=== PATIENT | female | born 1985 | race American Indian/Alaskan Native ===

== ENCOUNTER 2017-05-25 05:19 | Inpatient (IN) | payer BC, MEDICAID ==
[2017-05-25] MEDS: LACTATED RINGERS 1,000 ML IV SCH ×2 (07:30→08:04)
[2017-05-25] MEDS ORDERED: LACTATED RINGERS 1,000 ML ONE (07:30)
[2017-05-25 07:57] LABS: Hemoglobin 9.7 gm/dl (10.1-14.3); Mean Corpuscular HGB Conc 33 % (30-34); Mean Corpuscular Volume 77 fl (79-97); Platelet Count 182 K/mm3 (140-440); Red Blood Count 3.76 M/mm3 (3.65-5.03); Red Cell Distribution Width 16.9 % (13.2-15.2); White Blood Count 5.1 K/mm3 (4.5-11.0)
[2017-05-25 07:59] LABS: Mean Corpuscular Hemoglobin 26 pg (28-32)
--- NOTE | 2017-05-25 08:13 | History and Physical Report ---
<EDWIN LUDWIG - Last Filed: 05/25/17 08:09> History of Present Illness Date of examination: 05/25/17 Date of admission: 05/25/17 06:45 History of present illness: 31 yo LMP EDC 05/26/17 @ 39.6 weeks gestation presented to triage at 2 cm with bloody show and deceleration with recovery. Decision made to admit. Patient is a transfer into care at 37 weeks from [facility], [employer]. She is HSV2 positive. course complicated by anemia with iron. She is GBS negative. Past History Past Medical History: neurologic (chronic headaches), other (anemia) Past Surgical History: no surgical history [employer] SYSTEMS ENGINEER History: chlamydia, herpes, trichomonas Family/Genetic History: hypertension Social history: no significant social history, single, lives with family - Obstetrical History Expected Date of Delivery: 05/26/17 Actual Gestation: 39 Week(s) 6 Day(s) : 3 Para: 2 Hx # Term Pregnancies: 2 (2006, 40 weeks 7-9oz & 2013, 40 weeks, 7-14) Number of Pregnancies: 0 Number of Living Children: 2 Medications and Allergies Allergies Allergy/AdvReac Type Severity Reaction Status Date / Time No Known Allergies Allergy Unverified 04/06/13 09:38 Home Medications Medication Instructions Recorded Confirmed Last Taken Type Vits96/Iron Fum/Folic 1 tab PO DAILY 12/03/13 05/25/17 05/22/17 09:00 History [ Tablet] Valacyclovir HCl [Valtrex] 500 mg PO DAILY 05/25/17 05/25/17 05/24/17 22:30 History Active Meds: Active Medications Lactated Ringer's (Lactated Ringers) 1,000 mls @ 125 mls/hr IV DIRECT CLYDE Last Admin: 05/25/17 08:04 Dose: 125 mls/hr Review of Systems All systems: negative - Vital Signs Vital signs: Vital Signs Pulse BP Pulse Ox 91 H 122/77 98 05/25/17 05:43 05/25/17 05:43 05/25/17 05:43 Temp Pulse Resp BP Pulse Ox 97.9 F 98 H 18 121/77 100 05/25/17 05:59 05/25/17 08:08 05/25/17 05:59 05/25/17 07:55 05/25/17 08:08 Results Result Diagrams: 05/25/17 07:00 Abnormal lab results 05/25/17 Range/Units 07:00 Hgb 9.7 L (10.1-14.3) gm/dl Hct 29.0 L (30.3-42.9) % MCV 77 L (79-97) fl MCH 26 L (28-32) pg RDW 16.9 H (13.2-15.2) % All other labs normal. Assessment and Plan A: IUP at 39.6 week Anemia P: <BONIFACIO STACY - Last Filed: 05/25/17 12:03> History of Present Illness Date of admission: 05/25/17 06:45 Medications and Allergies Active Meds: Active Medications Butorphanol Tartrate (Stadol) 2 mg IV Q2H PRN PRN Reason: Pain , Severe (7-10) Fentanyl (Sublimaze) 100 mcg IV Q2H PRN PRN Reason: Labor Pain Lactated Ringer's (Lactated Ringers) 1,000 mls @ 125 mls/hr IV DIRECT CLYDE Last Admin: 05/25/17 08:04 Dose: 125 mls/hr Lactated Ringer's (Lactated Ringers) 1,000 mls @ 125 mls/hr IV DIRECT CLYDE Last Admin: 05/25/17 09:11 Dose: 125 mls/hr Oxytocin/Sodium Chloride (Pitocin/Ns 20 Unit/1000ml Drip) 20 units in 1,000 mls @ 125 mls/hr IV DIRECT CLYDE Oxytocin/Sodium Chloride (Pitocin/Ns 30 Unit/500ml) 30 units in 500 mls @ 1 mls /hr IV TITR CLYDE; 1 MILLIUNITS/MIN PRN Reason: Protocol Last Admin: 05/25/17 10:16 Dose: 4 milliunits/min, 4 mls/hr Fentanyl/Bupivacaine/Sodium Chlor (Fentanyl-Bupiv 2 Mcg/Ml-0.125%) 200 mcg in 100 mls @ 12 mls/hr EPIDURAL TITR CLYDE PRN Reason: Protocol Last Admin: 05/25/17 09:17 Dose: 12 mls/hr Mineral Oil (Mineral Oil) 30 ml PO QHS PRN PRN Reason: Constipation - Vital Signs Vital signs: Vital Signs Pulse BP Pulse Ox 91 H 122/77 98 05/25/17 05:43 05/25/17 05:43 05/25/17 05:43 Temp Pulse Resp BP Pulse Ox 97.9 F 107 H 18 105/65 100 05/25/17 05:59 05/25/17 11:33 05/25/17 05:59 05/25/17 11:29 05/25/17 11:33 Results Result Diagrams: 05/25/17 07:00 Abnormal lab results 05/25/17 Range/Units 07:00 Hgb 9.7 L (10.1-14.3) gm/dl Hct 29.0 L (30.3-42.9) % MCV 77 L (79-97) fl MCH 26 L (28-32) pg RDW 16.9 H (13.2-15.2) % All other labs normal. Assessment and Plan Routine intrapartum care. Anticipate vaginal delivery.
[2017-05-25] MEDS ORDERED: ePHEDrine SULFATE ONE (08:17)
[2017-05-25] MEDS ORDERED: XYLOCAINE 2% INFILTRATI ONE (08:17)
[2017-05-25] MEDS ORDERED: BRETHINE SUB-Q PRN (08:17)
[2017-05-25] MEDS ORDERED: ePHEDrine SULFATE IV PRN ×2 (08:17→09:00)
[2017-05-25] MEDS ORDERED: STADOL IV PRN (08:17)
[2017-05-25] MEDS ORDERED: BRETHINE IVP PRN (08:17)
[2017-05-25] MEDS ORDERED: SUBLIMAZE IV PRN (08:17)
[2017-05-25] MEDS ORDERED: MINERAL OIL PO PRN (08:17)
--- NOTE | 2017-05-25 08:51 | Anesthesia Consultation ---
Anesthesia Consult and Med Hx Date of service: 05/25/17 - Airway Anesthetic Teeth Evaluation: Good ROM Head & Neck: Adequate Mental/Hyoid Distance: Adequate Mallampati Class: Class II Intubation Access Assessment: Probably Good - Pre-Operative Health Status ASA Pre-Surgery Classification: ASA2 Proposed Anesthetic Plan: Epidural - Pulmonary Hx Asthma: No COPD: No Hx Pneumonia: No - Cardiovascular System Hx Hypertension: No - Central Nervous System Hx Seizures: No Hx Psychiatric Problems: No - Endocrine Hx Renal Disease: No Hx End Stage Renal Disease: No Hx Hypothyroidism: No Hx Hyperthyroidism: No - Hematic Hx Anemia: Yes Hx Sickle Cell Disease: No - Other Systems Hx Alcohol Use: No
[2017-05-25] MEDS ORDERED: PITOCin/NS 20 UNIT/1000ML DRIP 20 UNITS/1,000 ML BAG IV SCH ×2 (09:00→14:13)
[2017-05-25] MEDS ORDERED: NARCAN 2 MG/2 ML IV PRN (09:00)
[2017-05-25] MEDS ORDERED: LACTATED RINGERS 1,000 ML IV SCH (09:00)
[2017-05-25] MEDS ORDERED: PITOCin/NS 30 UNIT/500ML 30 UNITS/500 ML BAG IV SCH (09:00)
[2017-05-25] MEDS ORDERED: fentaNYL-BUPIV 2 MCG/ML-0.125% 200 MCG/100 ML BAG EPIDURAL SCH (09:00)
--- NOTE | 2017-05-25 12:08 | Procedure Note ---
OB Delivery Note - Delivery Date of Delivery: 05/25/17 Surgeon: BONIFACIO STACY Estimated blood loss: other (500 mL) - Vaginal Delivery presentation: vertex Delivery position: OA Intrapartum events: PROM->1hr before delivery, bleeding site-undetermine, mult.variable deceleratio Delivery induction: none Delivery augmentation: rupture of membranes, pitocin Delivery monitor: external FHT, external uterine Route of delivery: Delivery placenta: spontaneous Delivery cord: 3 umbilical vessels Episiotomy: none Delivery laceration: other (Bilateral periturethral- hemostatic. Perineal abrasion- hemostatic ) Anesthesia: epidural Delivery comments: Pt progressed to complete/complete/+1 and pushed to deliver a viable male over intact perineum under epidural anesthesia via . Head delivered in ROLANDO position, quickly followed by shoulder and body. placed on maternal abdomen and bulb suctioned. Cord clamped and cut and handed to RN in attendance. Cord blood collected. Placenta delivered spontaneously (3VC, intact, accessory lobe). Vagina and perineum explored. Bilateral periurethral lacerations noted to be hemostatic. Perineal abrasions noted to be hemostatics. Pt had light bleeding throughout her labor course, so total EBL 500 mL (though only 300 mL during delivery). - Infant A at 1 minute: 9 at 5 minutes: 9 Gender: Male (3622g (8lb 0oz) @ 1137 am)
[2017-05-25] MEDS ORDERED: MILK OF MAGNESIA PO PRN (14:13)
[2017-05-25] MEDS ORDERED: TYLENOL PO PRN (14:13)
[2017-05-25] MEDS ORDERED: ZOFRAN IV PRN (14:13)
[2017-05-25] MEDS ORDERED: PHENERGAN PR PRN (14:13)
[2017-05-25] MEDS ORDERED: DERMOPLAST TP PRN (14:13)
[2017-05-25] MEDS ORDERED: LANSINOH TP PRN (14:13)
[2017-05-25] MEDS ORDERED: PHENERGAN PO PRN (14:13)
[2017-05-25] MEDS ORDERED: SODIUM CHLORIDE FLUSH SYRINGE 10 ML IV NR (14:13)
[2017-05-25] MEDS ORDERED: BENADRYL PO PRN (14:13)
[2017-05-25] MEDS ORDERED: DULCOLAX PR PRN (14:13)
[2017-05-25] MEDS ORDERED: NORCO 5/325 PO PRN (14:13)
[2017-05-25] MEDS ORDERED: TUCKS PAD TP PRN (14:13)
[2017-05-25] MEDS: MOTRIN PO SCH ×2 (14:54→23:01)
[2017-05-25] MEDS: FEOSOL PO SCH (23:01)
[2017-05-25] MEDS: COLACE PO SCH (23:01)
[2017-05-26 01:31] LABS: Hematocrit 25.8 % (30.3-42.9); Hemoglobin 8.6 gm/dl (10.1-14.3)
[2017-05-26] MEDS: MOTRIN PO SCH ×4 (05:19→20:13)
--- NOTE | 2017-05-26 08:13 | Progress Note ---
Assessment and Plan - Patient Problems (1) Active labor at term Current Visit: Yes Status: Acute Plan to address problem: discharge home Subjective - Subjective Date of service: 05/26/17 Interval history: Patient doing well. She desires to go home. Pain controlled. Decreased lochia Patient reports: appetite normal, voiding normally, pain well controlled [place]: doing well Objective - Vital Signs Latest vital signs: Vital Signs Temp Pulse Resp BP BP Pulse Ox 05/26/17 01:36 99.1 F 75 16 103/70 05/25/17 20:26 98.8 F 94 H 18 110/51 05/25/17 16:30 98.5 F 76 18 98/63 05/25/17 13:40 98.2 F 87 18 112/78 100 05/25/17 13:20 97.4 F L 05/25/17 13:14 88 124/69 05/25/17 12:59 102 H 145/60 05/25/17 12:44 85 121/70 05/25/17 12:29 96 H 112/76 05/25/17 12:14 90 119/69 05/25/17 11:59 106 H 113/71 05/25/17 11:55 98.2 F 05/25/17 11:45 16 05/25/17 11:44 96 H 111/65 05/25/17 11:38 95 H 100 05/25/17 11:33 107 H 100 05/25/17 11:29 114 H 105/65 05/25/17 11:28 94 H 100 05/25/17 11:23 85 100 05/25/17 11:18 104 H 100 05/25/17 11:15 93 H 99/58 05/25/17 11:13 89 100 05/25/17 11:08 85 100 05/25/17 11:03 96 H 100 05/25/17 10:59 116 H 74/42 05/25/17 10:58 98 H 100 05/25/17 10:53 95 H 100 05/25/17 10:48 95 H 100 05/25/17 10:45 104 H 87/51 05/25/17 10:43 98 H 100 05/25/17 10:38 87 100 05/25/17 10:33 97 H 100 05/25/17 10:29 89 93/50 05/25/17 10:28 91 H 100 05/25/17 10:23 101 H 100 05/25/17 10:18 91 H 100 05/25/17 10:15 94 H 90/52 05/25/17 10:13 114 H 100 05/25/17 10:08 106 H 100 05/25/17 10:03 96 H 100 05/25/17 10:00 98 H 96/58 05/25/17 09:58 86 99 05/25/17 09:53 91 H 100 05/25/17 09:50 97 H 0 L 05/25/17 09:48 82 100 05/25/17 09:44 89 104/61 05/25/17 09:43 85 100 05/25/17 09:38 92 H 99 05/25/17 09:33 85 100 05/25/17 09:29 86 111/67 05/25/17 09:28 115 H 99 05/25/17 09:23 89 99 05/25/17 09:18 84 99 05/25/17 09:13 90 115/61 100 05/25/17 09:11 94 H 98/65 05/25/17 09:09 100 H 100/56 05/25/17 09:08 93 H 99 05/25/17 09:07 98 H 98/55 05/25/17 09:05 93 H 100/59 05/25/17 09:03 90 102/61 100 05/25/17 09:01 100 H 105/60 05/25/17 08:59 88 104/62 05/25/17 08:58 85 100 05/25/17 08:57 110 H 105/59 05/25/17 08:55 89 107/61 05/25/17 08:53 97 H 114/64 100 05/25/17 08:51 137 H 104/61 05/25/17 08:49 105 H 113/62 05/25/17 08:48 96 H 100 05/25/17 08:47 104 H 108/62 05/25/17 08:45 106 H 111/68 05/25/17 08:43 90 115/70 100 05/25/17 08:41 96 H 108/67 05/25/17 08:39 96 H 113/69 05/25/17 08:38 87 72 L 05/25/17 08:37 105 H 113/69 05/25/17 08:35 99 H 117/66 05/25/17 08:33 110 H 121/72 100 05/25/17 08:28 99 H 100 05/25/17 08:27 109 H 130/70 05/25/17 08:23 95 H 100 05/25/17 08:18 115 H 98 Intake and Output 05/25/17 05/26/17 05/26/17 22:59 06:59 14:59 Intake Total 600 180 Balance 600 180 Intake: Oral 240 Intake, Free Water 360 180 Other: Total, Intake Amount 240 # Voids Indwelling Catheter 1 Void 1 - Exam Abdomen: Present: normal appearance Uterus: Present: normal, firm - Labs Labs: Abnormal lab results 05/26/17 Range/Units 00:57 Hgb 8.6 L (10.1-14.3) gm/dl Hct 25.8 L (30.3-42.9) %
--- NOTE | 2017-05-26 08:16 | Discharge Summary ---
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 During her observation in triage, fetus had a bradycardic episode. Patient admitted for augmention. Had a . uncomplicated Condition at discharge: Good Disposition: DC-01 TO HOME OR SELFCARE - Discharge Diagnoses (1) Active labor at term Status: Acute Plan - Discharge Medications Prescriptions: HYDROcodone/APAP 5-325 [[place] 5/325] 1 each PO Q6HR PRN #30 tablet PRN Reason: Pain Ibuprofen [Motrin] 800 mg PO Q8HR PRN #60 tablet PRN Reason: Pain - Provider Discharge Summary Activity: no sex for 6 weeks, no heavy lifting 4 weeks, no strenuous exercise Diet: routine Instructions: routine Additional instructions: [] Smoking cessation referral if applicable(refer to patient education folder for contact #) [] Refer to [facility]'s [facility] [address] Booklet Call your doctor immediately for: * Fever > 100.5 * Heavy vaginal bleeding ( >1 pad per hour) * Severe persistent headache * Shortness of breath * Reddened, hot, painful area to leg or breast * followup in 4 weeks * schedule circumcision at [facility] upon discharge - Follow up plan
[2017-05-26] MEDS ORDERED: PRENATAL VITAMIN PO SCH (10:00)
[2017-05-26] MEDS: FEOSOL PO SCH ×2 (10:25→22:13)
[2017-05-26] MEDS: COLACE PO SCH ×2 (10:26→22:14)
[2017-05-26] MEDS ORDERED: BOOSTRIX IM ONE (12:09)
[2017-05-26] MEDS ORDERED: M-M-R II VACCINE SUB-Q ONE (12:09)
--- NOTE | 2017-05-26 13:18 | Progress Note ---
Subjective Date of service: 05/26/17 Interval history: 1st day after normal vaginal delivery Patient is in the room, comfortable. Pain is mostly controlled with pain meds. Ambulated well. No residual neurological deficit. No anesthesia complications Objective - Constitutional Vitals: Vital Signs - 12hr 05/26/17 05/26/17 01:36 08:05 Temperature 99.1 F 98.2 F Pulse Rate 75 62 Respiratory 16 18 Rate Blood Pressure 103/70 87/52 [Left] - Labs CBC & Chem 7: 05/26/17 00:57 Labs: Abnormal lab results 05/26/17 Range/Units 00:57 Hgb 8.6 L (10.1-14.3) gm/dl Hct 25.8 L (30.3-42.9) %
[2017-05-27] MEDS: MOTRIN PO SCH (02:13)
[2017-05-27 09:06] VITALS: BP 99/64
== END 2017-05-27 12:15 | disposition home or self-care (01) | DRG 774 ==
LOC: TRG 05:19 → LD 06:45 → OB 14:04
PROVIDERS: ADMIT Obstetrics & Gynecology; ATTEND Obstetrics & Gynecology
PROC: 10E0XZZ Delivery of Products of Conception, External Approach (ICD-10-PCS; principal; 2017-05-25)
PROC: 3E0R3BZ Introduction of Anesthetic Agent into Spinal Canal, Percutaneous Approach (ICD-10-PCS; 2017-05-25)
PROC: 00HU33Z Insertion of Infusion Device into Spinal Canal, Percutaneous Approach (ICD-10-PCS; 2017-05-25)
PROC: 3E0234Z Introduction of Serum, Toxoid and Vaccine into Muscle, Percutaneous Approach (ICD-10-PCS; 2017-05-26)
DX: O42.02 Full-term premature rupture of membranes, onset of labor within 24 hours of rupture (principal); O98.52 Other viral diseases complicating childbirth; Z3A.39 39 weeks gestation of pregnancy; Z37.0 Single live birth; O76 Abnormality in fetal heart rate and rhythm complicating labor and delivery; O71.82 Other specified trauma to perineum and vulva; O70.9 Perineal laceration during delivery, unspecified; B00.9 Herpesviral infection, unspecified; O99.02 Anemia complicating childbirth; D64.9 Anemia, unspecified; Z23 Encounter for immunization
CPT/HCPCS: 36415; 85014; 85018; 85027; 86592; 86850; 86900; 86901; 88307; 99211; G0463; J2405; J2590; J7120